=== PATIENT | male | born 1985 | race Caucasian/White ===

== ENCOUNTER 2020-02-01 13:15 | Emergency (ER) | payer BC, SELFPAY ==
[2020-02-01] VITALS (9 sets, daily range): BP systolic 127–148; BP diastolic 73–80; PULSE 70–111; RESP 18–23; TEMP 36.1; O2SAT 94–98
--- NOTE | ~2020-02-01 | XR_ITS ---
EXAMINATION: XR chest 1V portable 02/01/2020 14:30 INDICATION: Shortness of breath PROCEDURE: AP portable chest COMPARISON: 04/04/2018 FINDINGS: The lungs are clear. The cardiomediastinal silhouette is within normal limits. There are no pleural effusions. There is no pneumothorax suspected. IMPRESSION: 1: NO ACUTE CARDIOPULMONARY DISEASE. Reviewed, dictated and finalized at location A. 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
--- NOTE | 2020-02-01 13:47 | ECG_ITS ---
Measurements Intervals [place] Rate: 76 P: 58 [place]: 161 QRS: 89 QRSD: 105 T: 43 QT: 376 QTc: 423 Interpretive Statements SINUS RHYTHM VENTRICULAR PREMATURE COMPLEXES BASELINE ARTIFACT- II, III, AVF BORDERLINE ECG Electronically Signed On 02-02-2020 11:03:33 BICYCLE MESSENGER by Stoney Santiago D.O.
--- NOTE | 2020-02-01 13:50 | ED.URI ---
HPI - URI/Sore Throat General Chief Complaint: Upper Respiratory Infection Stated Complaint: I need a breathing treatment Time Seen by Provider: 02/01/20 13:27 Source: patient Mode of arrival: ambulatory Limitations: no limitations History of Present Illness HPI Narrative: This patient is a 34 year old male with history of asthma who presents for evaluation of shortness of breath. He reports he developed worsen shortness of breath and wheezing last night. He states he just intermittently gets flare up. He has been using his inhaler and nebulizer without relief. He complaints of lung tightness. He denies fever, chills, nausea, vomiting, diarrhea, headache, sore throat. He reports mild dry cough. He denies sick contacts. On my evaluation, patient has oxygen saturation 90% on room air. Related Data Home Medications Medication Instructions Recorded Confirmed albuterol mcg INHALATION 02/01/20 Allergies Allergy/AdvReac Type Severity Reaction Status Date / Time Cephalosporins Allergy Mild Verified 04/04/18 13:31 erythromycin base Allergy Mild Verified 04/04/18 13:31 Penicillins Allergy Mild Verified 04/04/18 13:31 Sulfa (Sulfonamide Allergy Mild Verified 04/04/18 13:31 Antibiotics) Review of Systems Review of Systems: All systems reviewed & are unremarkable except as noted in HPI and below PMFSH Past Medical History Medical History (Updated 02/02/20 @ 00:00 by Reny Cruz) Asthma Social History Social History (Updated 02/01/20 @ 13:58 by Shruthi Harrison MD) Smoking status: Never smoker Gender identity (if verbalized by the patient): Male Exam Const: General: no acute distress and alert Orientation/consciousness: patient oriented x3 Eyes: EOM: EOMs intact bilaterally Resp: Effort & Inspection: normal respiratory effort Auscultation: wheezes expiratory wheezes, inspiratory wheezes and throughout Other: able to talk in full complete sentences. Cardio: Rate: regular rate Rhythm: regular rhythm Heart sounds: no murmurs GI: GI Palp: Yes Soft to palpation, No Tenderness to palpation present (GI) and No Guarding due to palpation present (GI) Auscultation: normal bowel sounds Skin: General skin exam: normal color Rashes: no rashes Neuro: General: patient oriented x3 and moves all extremities Extrem: General: no pedal edema Psych: Mental Status: mental status grossly normal Affect: normal affect Course Reevaluation(s) Reevaluation #1: Patient states he feels better. His oxygen saturation ranges from 90-95% on room air. Patient still has expiratory wheezing. I recommended to patient observation for neb treatments in the hospital and monitoring. He states he does not want to stay. He has a nebulizer at home and he states he needs more of the solution and steroids. I stressed the importance of not waiting if he is short of breath. He needs to return to ER immediately. I discussed seriousness of asthma and risk of if not taken care of . He state he understands and he still wants to go home. Date: 02/01/20 Time: 18:19 Vital Signs Vital signs: Vital Signs Temperature 97.0 F L 02/01/20 13:19 Pulse Rate 94 02/01/20 13:19 Respiratory Rate 22 H 02/01/20 13:19 Blood Pressure 148/80 H 02/01/20 13:19 Pulse Oximetry 98 02/01/20 13:19 Temperature 97.0 F L 02/01/20 13:19 Pulse Rate 86 02/01/20 18:56 Respiratory Rate 23 H 02/01/20 18:56 Blood Pressure 127/73 02/01/20 18:56 Pulse Oximetry 94 02/01/20 18:56 MDM - URI/Sore Throat Lab Data Attestation: I reviewed the patient's lab results. Result diagrams: 02/01/20 14:35 02/01/20 14:35 Labs: Lab Results 02/01/20 02/01/20 02/01/20 Range/Units 14:11 14:35 14:35 WBC 9.9 (4.5-10.0) K/mm3 RBC 5.67 (4.6-6.20) M/mm3 Hgb 17.5 (14.0-18.0) g/dL Hct 51.0 (42.0-52.0) % MCV 89.9 (80-100) fl MCH 30.9 (26-34) pg MCHC 34.3 (32-36) g
[2020-02-01] MEDS: IPRATROPIUM BR 0.02% INH SOLN 0.5 MG/2.5 ML VIAL 1 MG INHALATION (14:12)
[2020-02-01] MEDS: ALBUTEROL SULFATE NEB 2.5 MG/0.5 ML INH 10 MG INHALATION (14:12)
[2020-02-01] MEDS: predniSONE 20 MG TABLET 60 MG PO (14:19)
[2020-02-01 14:28] LABS: Base Excess ABG 0.2 mEq/l (+/-2.0); Carboxyhemoglobin 0.5 % THb (0-2.0); Device ROOM AIR; Fractional Inspired Oxygen 21 %; HCO3 ABG 24.3 mEq/l (22.0-26.0); Methemoglobin ABG 0.3 %THb (0-1.5); Modified Allen's Test Pass; Oxygen Content ABG 21.5 %vol (16.0-22.0); Oxygen Saturation ABG 92.1 % (95.0-100.0); Oxyhemoglobin 91.2 % THb (90.0-100.0); PO2 ABG 61.2 mmHg (80.0-100.0); PO2 FiO2 Ratio Arterial Blood 2.91 %; Site Drawn LEFT RADIAL; Total Hemoglobin 16.8 g/dL (12.0-18.0); pH ABG 7.424 (7.350-7.450)
[2020-02-01 14:43] LABS: Basophils Absolute Auto 0.1 K/mm3 (0.0-0.1); Basophils Percent Auto 0.7 % (0.2-1.2); Eosinophils Absolute Auto 0.8 K/mm3 (0-0.3); Eosinophils Percent Auto 7.9 % (0-4.4); Hemoglobin 17.5 g/dL (14.0-18.0); Immature Granulocyte Absolute 0.02 K/mm3 (0.00-0.031); Immature Granulocyte Percent A 0.2 % (0-0.5); Lymphocytes Percent Auto 28.2 % (18.3-44.2); Mean Corpuscular HGB Conc 34.3 g/dl (32-36); Mean Corpuscular Hemoglobin 30.9 pg (26-34); Mean Corpuscular Volume 89.9 fl (80-100); Mean Platelet Volume 11.1 fl (7.4-10.4); Monocytes Absolute Auto 0.8 K/mm3 (0.1-0.6); Monocytes Percent Auto 8.5 % (2.6-8.5); Neutrophils Absolute Auto 5.4 K/mm3 (1.3-6.7); Neutrophils Percent Auto 54.5 % (45.5-73.1); Platelet Count Result 229 k/mm3 (150-375); Red Blood Count 5.67 M/mm3 (4.6-6.20); Red Cell Distribution Width 12.9 % (11.5-14.5); White Blood Count 9.9 K/mm3 (4.5-10.0)
[2020-02-01 14:54] LABS: INR 1.1; Prothrombin Time 14.3 Seconds (11.1-14.7)
[2020-02-01 14:55] LABS: Alanine Aminotransferase 35 U/L (4-50); Albumin Level 4.8 g/dL (3.5-5.1); Alkaline Phosphatase 83 U/L (38-126); Anion Gap 10 mmol/L (8-16); Aspartate Amino Transferase 35 U/L (17-59); Blood Urea Nitrogen 11 mg/dL (9-20); Calcium 9.5 mg/dL (8.4-10.2); Carbon Dioxide 31 mmol/L (22-30); Chloride 101 mmol/L (98-107); Estimated CRCL calculation 128 ml/min; Estimated Glomerular Filt Rate > 60; Glucose 100 mg/dL (75-110); Potassium 3.7 mmol/L (3.4-5.0); Sodium 142 mmol/L (137-145)
[2020-02-01 14:58] LABS: CRP 0.6 mg/dL (<1.0); D Dimer 0.23 ug/mL (<0.48); Magnesium 1.9 mg/dL (1.6-2.3)
[2020-02-01] MEDS: IPRATROPIUM BR 0.02% INH SOLN 0.5 MG/2.5 ML VIAL INHALATION ×2 (17:43→18:14)
[2020-02-01] MEDS: ALBUTEROL SULFATE NEB 2.5 MG/0.5 ML INH 5 MG INHALATION ×2 (17:43→18:14)
[2020-02-03 19:30] LABS: SARS-CoV-2 RNA PCR Negative
== END 2020-02-01 18:56 | disposition home or self-care (01) ==
PROVIDERS: Emergency Provider General Practice
DX: J45.909 Unspecified asthma, uncomplicated (principal); Z20.828 Contact with and (suspected) exposure to other viral communicable diseases; I49.3 Ventricular premature depolarization
CPT/HCPCS: 36415; 36600; 71045; 80053; 82375; 82805; 83050; 83735; 85025; 85380; 85610; 85730; 86140; 87635; 93005; 94640; 99284; C9803; J7512; U0003

== ENCOUNTER 2020-02-01 16:27 | Emergency (ER) | payer BC, SELFPAY | END 2020-02-01 16:29 | disposition left against medical advice (07) | LOC: ANHED 16:32 | DX: Z53.21 Procedure and treatment not carried out due to patient leaving prior to being seen by health care provider (principal) | CPT/HCPCS: 99199 ==

== ENCOUNTER 2020-05-27 09:45 | Emergency (ER) | payer BC, SELFPAY ==
--- NOTE | ~2020-05-27 | XR_ITS ---
EXAMINATION: XR chest 1V portable DATE: 05/27/2020 11:29 INDICATION: Dyspnea. Asthma. TECHNIQUE: A single frontal view of the chest was obtained. COMPARISON: Chest single view 02/01/2020, chest CT 02/10/2017 FINDINGS: The chest demonstrates clear lungs without pneumonia, pleural effusion, or pneumothorax. Th e heart size is normal. IMPRESSION: 1. No acute cardiopulmonary disease. Reviewed, dictated and finalized at location B.
[2020-05-27 09:53] VITALS: BP 160/94; PULSE 104; RESP 22; TEMP 36.7; O2SAT 95
--- NOTE | 2020-05-27 10:05 | ED.ASTHMA ---
HPI - Asthma General Chief Complaint: Asthma Stated Complaint: diff breathing Time Seen by Provider: 05/27/20 10:05 Source: patient Mode of arrival: ambulatory Limitations: no limitations History of Present Illness HPI Narrative: Patient is a 35-year-old male with a history of asthma who presents for evaluation of shortness of breath. Patient states he has had increasing shortness of breath over the past 4 days. He states yesterday the shortness of breath worsened as well as increased wheezing and he did over 150 puffs on his albuterol inhaler. Patient did not have improvement with this. He states he is not out of albuterol, has no access to medications as he does not currently follow with a primary care provider. He denies any current steroid use. He denies any shon chest pain. No pleuritic pain. He has no fever, loss of sense of taste or smell. No rashes. 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 He states he had a sinus infection a week ago and was treated with an antibiotic but now has had increased shortness of breath since finishing that. Patient states initially this started with a runny nose as well as sore throat, but denies those symptoms currently. No history of Covid. No history of Covid vaccination. Related Data Home Medications Medication Instructions Recorded Confirmed albuterol mcg INHALATION 02/01/20 Allergies Allergy/AdvReac Type Severity Reaction Status Date / Time Cephalosporins Allergy Mild Unknown Verified 05/27/20 09:56 erythromycin base Allergy Mild Unknown Verified 05/27/20 09:56 Penicillins Allergy Mild Unknown Verified 05/27/20 09:56 Sulfa (Sulfonamide Allergy Mild Unknown Verified 05/27/20 09:56 Antibiotics) Review of Systems Review of Systems: Narrative: CONSTITUTIONAL: Denies fever, chills, or sweats. EYES: Denies visual changes, redness, or discharge. ENT: Resolved rhinorrhea and sore throat CARDIOVASCULAR: Denies chest pain, palpitations, or edema. RESPIRATORY: Reports cough and shortness of breath GASTROINTESTINAL: Denies abdominal pain, nausea, vomiting, or diarrhea. GENITOURINARY: Denies dysuria or hematuria. SKIN: Denies rash or itching. MUSCULOSKELETAL: Denies back pain, joint pain, or myalgia. NEUROLOGIC: Denies headache, numbness, or weakness. [facility] Past Medical History Medical History Asthma Social History Social History Smoking status: Never smoker Gender identity (if verbalized by the patient): Male Exam Narrative: Exam Narrative: GENERAL: Awake, alert, conversant HEAD: Normocephalic, atraumatic. EYES: PERRLA and EOMI. ENT: Nares clear, no rhinorrhea or epistaxis. Mucous membranes moist. NECK: Supple. CHEST: Tachypnea, mild respiratory distress, able to speak in short sentences, diffuse expiratory wheezing in all lung akins HEART: Regular rate, sinus rhythm ABDOMEN:Non distended, non tender EXTREMITIES: Normal range of motion. No edema. SKIN: Warm, dry, no rash. NEURO:No focal deficits. Alert and oriented x3 Course Vital Signs Vital signs: Vital Signs Temperature 36.7 C 05/27/20 09:53 Pulse Rate 104 H 05/27/20 09:53 Respiratory Rate 22 H 05/27/20 09:53 Blood Pressure 160/94 H 05/27/20 09:53 Pulse Oximetry 95 05/27/20 09:53 Temperature 36.7 C 05/27/20 09:53 Pulse Rate 76 05/27/20 12:15 Respiratory Rate 20 05/27/20 12:15 Blood Pressure 160/94 H 05/27/20 09:53 Pulse Oximetry 95 05/27/20 09:53 MDM - Asthma MDM Narrative Medical decision making narrative: Patient presented for evaluation of wheezing and shortness of breath. States that is consistent with previous asthma exacerbations. At time of assessment, exam is consistent with mild asthma exacerbation. He has diffuse wheezing in all lung akins. He is mildly tachypneic. Patient was given a DuoNeb treatment and steroids. Yuan
[2020-05-27] MEDS: SODIUM CHLORIDE 0.9% IV 500 ML 999 ML IV CONT (10:35)
[2020-05-27] MEDS: methylPREDNISolone SOD SUCC 125 MG VIAL IV PUSH (10:35)
--- NOTE | 2020-05-27 10:41 | ECG_ITS ---
Measurements Intervals [place] Rate: 71 P: 56 [place]: 162 QRS: 82 QRSD: 100 T: 57 QT: 374 QTc: 407 Interpretive Statements SINUS RHYTHM NORMAL ECG Electronically Signed On 05-27-2020 12:18:57 CDT by Stoney Santiago D.O.
[2020-05-27] MEDS: ALBUTEROL SULFATE NEB 2.5 MG/0.5 ML INH 5 MG INHALATION (10:50)
[2020-05-27] MEDS: IPRATROPIUM BR 0.02% INH SOLN 0.5 MG/2.5 ML VIAL 1 MG INHALATION (10:50)
[2020-05-27 10:51] VITALS: PULSE 74; RESP 20
[2020-05-27 10:53] LABS: Basophils Absolute Auto 0.1 K/mm3 (0.0-0.1); Basophils Percent Auto 0.6 % (0.2-1.2); Eosinophils Absolute Auto 0.7 K/mm3 (0-0.3); Eosinophils Percent Auto 7.3 % (0-4.4); Hematocrit 43.1 % (42.0-52.0); Hemoglobin 14.4 g/dL (14.0-18.0); Immature Granulocyte Absolute 0.02 K/mm3 (0.00-0.031); Immature Granulocyte Percent A 0.2 % (0-0.5); Lymphocytes Absolute Auto 1.74 K/mm3 (0.9-3.2); Lymphocytes Percent Auto 18.2 % (18.3-44.2); Mean Corpuscular HGB Conc 33.4 g/dl (32-36); Mean Corpuscular Hemoglobin 30.2 pg (26-34); Mean Corpuscular Volume 90.4 fl (80-100); Mean Platelet Volume 11.4 fl (7.4-10.4); Monocytes Absolute Auto 1.1 K/mm3 (0.1-0.6); Monocytes Percent Auto 11.1 % (2.6-8.5); Neutrophils Percent Auto 62.6 % (45.5-73.1); Platelet Count Result 193 k/mm3 (150-375); Red Blood Count 4.77 M/mm3 (4.6-6.20); Red Cell Distribution Width 13.5 % (11.5-14.5); White Blood Count 9.6 K/mm3 (4.5-10.0)
[2020-05-27 11:06] LABS: Anion Gap 7 mmol/L (8-16); Blood Urea Nitrogen 13 mg/dL (9-20); Calcium 8.9 mg/dL (8.4-10.2); Carbon Dioxide 29 mmol/L (22-30); Chloride 104 mmol/L (98-107); Estimated CRCL calculation 158 ml/min; Estimated Glomerular Filt Rate > 60; Glucose 96 mg/dL (75-110); Potassium 3.4 mmol/L (3.4-5.0); Sodium 140 mmol/L (137-145)
[2020-05-27 12:15] VITALS: PULSE 76; RESP 20
[2020-05-28 20:31] LABS: SARS-CoV-2 RNA PCR Negative
== END 2020-05-27 12:48 | disposition home or self-care (01) ==
PROVIDERS: Emergency Provider Emergency Medicine
DX: J45.21 Mild intermittent asthma with (acute) exacerbation (principal); Z20.822 Contact with and (suspected) exposure to COVID-19
CPT/HCPCS: 36415; 71045; 80048; 85025; 93005; 94640; 96361; 96374; 99284; C9803; J2930; J7040; U0003; U0005

== ENCOUNTER 2020-10-21 06:34 | Emergency (ER) | payer BC, SELFPAY ==
[2020-10-21] VITALS (26 sets, daily range): BP systolic 104–168; BP diastolic 62–94; PULSE 88–128; RESP 12–29; TEMP 36.9; O2SAT 94–100
--- NOTE | ~2020-10-21 | XR_ITS ---
EXAMINATION: XR chest 2V DATE: 10/21/2020 07:18 INDICATION: Shortness of breath and wheezing TECHNIQUE: PA and lateral views of the chest were obtained. COMPARISON: Chest radiograph dated 05/27/2020 FINDINGS: The lungs remain clear with no focal airspace opacities, pulmonary edema, pleural effusion or pneumot horax. The cardiomediastinal silhouette is normal. Visualized bones and soft tissues are unremarkable . IMPRESSION: 1. Normal chest radiograph. Reviewed, dictated and finalized at location A. IMPRESSION: 1. Normal chest radiograph.
--- NOTE | 2020-10-21 06:44 | ECG_ITS ---
Measurements Intervals [place] Rate: 111 P: 78 [place]: 140 QRS: 93 QRSD: 96 T: -9 QT: 313 QTc: 426 Interpretive Statements SINUS TACHYCARDIA POSSIBLE RIGHT ATRIAL ENLARGEMENT LEFT ATRIAL ENLARGEMENT RIGHT AXIS DEVIATION BORDERLINE R WAVE PROGRESSION, ANTERIOR LEADS BORDERLINE ST-T WAVE ABNORMALITY- INFERIOR LEADS BASELINE ARTIFACT- II, III, AVR, AVF, V1-V2 ABNORMAL ECG Electronically Signed On 10-21-2020 7:50:33 CDT by Stoney Santiago D.O.
--- NOTE | 2020-10-21 06:53 | PC.NURSE ---
RT here to give patient breathing treatment.
[2020-10-21] MEDS: IPRATROPIUM BR 0.02% INH SOLN 0.5 MG/2.5 ML VIAL INHALATION (06:55)
[2020-10-21] MEDS: ALBUTEROL SULFATE NEB 2.5 MG/0.5 ML INH 5 MG INHALATION (06:55)
[2020-10-21 07:05] LABS: Basophils Absolute Auto 0.1 K/mm3 (0.0-0.1); Basophils Percent Auto 0.3 % (0.2-1.2); Eosinophils Absolute Auto 0.6 K/mm3 (0-0.3); Eosinophils Percent Auto 3.1 % (0-4.4); Hematocrit 48.2 % (42.0-52.0); Hemoglobin 15.9 g/dL (14.0-18.0); Immature Granulocyte Absolute 0.05 K/mm3 (0.00-0.031); Immature Granulocyte Percent A 0.3 % (0-0.5); Lymphocytes Absolute Auto 1.99 K/mm3 (0.9-3.2); Lymphocytes Percent Auto 11.2 % (18.3-44.2); Mean Corpuscular Hemoglobin 30.3 pg (26-34); Mean Corpuscular Volume 91.8 fl (80-100); Mean Platelet Volume 11.6 fl (7.4-10.4); Monocytes Absolute Auto 1.4 K/mm3 (0.1-0.6); Monocytes Percent Auto 7.8 % (2.6-8.5); Neutrophils Absolute Auto 13.8 K/mm3 (1.3-6.7); Neutrophils Percent Auto 77.3 % (45.5-73.1); Platelet Count Result 203 k/mm3 (150-375); Red Blood Count 5.25 M/mm3 (4.6-6.20); Red Cell Distribution Width 13.2 % (11.5-14.5); White Blood Count 17.8 K/mm3 (4.5-10.0)
--- NOTE | 2020-10-21 07:13 | PC.NURSE ---
Pt going to xray.
[2020-10-21 07:40] LABS: Anion Gap 11 mmol/L (8-16); Blood Urea Nitrogen 11 mg/dL (9-20); Calcium 9.2 mg/dL (8.4-10.2); Carbon Dioxide 25 mmol/L (22-30); Chloride 104 mmol/L (98-107); Estimated Glomerular Filt Rate > 60; Glucose 132 mg/dL (65-110); Potassium 3.8 mmol/L (3.4-5.0); Sodium 140 mmol/L (137-145)
[2020-10-21] MEDS: ALBUTEROL SULFATE NEB 2.5 MG/0.5 ML INH 15 MG INHALATION (08:01)
[2020-10-21] MEDS: IPRATROPIUM BR 0.02% INH SOLN 0.5 MG/2.5 ML VIAL 1 MG INHALATION (08:01)
--- NOTE | 2020-10-21 08:04 | ED.SOB ---
HPI - SOB/Dyspnea General Chief Complaint: Shortness of Breath/Dyspnea Stated Complaint: asthma Time Seen by Provider: 10/21/20 06:57 History of Present Illness HPI Narrative: Patient is a 35-year-old male who presents to the ER with shortness of breath. Reports yesterday he began having thick sinus drainage that is green and yellow that causes him to have a productive cough. He has history of asthma and it is causing him to flareup. He typically uses his Symbicort twice a day without any issues. His albuterol inhaler was not helping him and then ran out. No fevers or chills or sweats. No known Covid exposures. No loss of taste or smell. He is unvaccinated. Related Data Home Medications Medication Instructions Recorded Confirmed albuterol mcg INHALATION 02/01/20 budesonide-formoterol [Symbicort] INHALATION 10/21/20 Allergies Allergy/AdvReac Type Severity Reaction Status Date / Time Cephalosporins Allergy Mild Unknown Verified 10/21/20 06:47 erythromycin base Allergy Mild Unknown Verified 10/21/20 06:47 Penicillins Allergy Mild Unknown Verified 10/21/20 06:47 Sulfa (Sulfonamide Allergy Mild Unknown Verified 10/21/20 06:47 Antibiotics) Review of Systems Review of Systems: All systems reviewed & are unremarkable except as noted in HPI and below Constitutional: Constitutional: Denies chills, Denies fever(s) and Denies weakness ENT: Reports nasal congestion and Reports sore throat Cardiovascular: Cardiovascular: Denies chest pain, Denies rapid heart rate and Denies radiating jaw, neck or arm pain Respiratory: Respiratory: Reports chest congestion, Reports cough, Reports dyspnea and Reports wheezing Gastrointestinal: Gastrointestinal: Denies abdominal pain, Denies nausea and Denies vomiting PMFSH Past Medical History Medical History (Updated 10/21/20 @ 10:28 by Jhon Duarte MD) Anxiety Asthma Depression Kidney stones Surgical History Surgical History (Updated 10/21/20 @ 08:08 by Jhon Duarte MD) Hx of tonsillectomy Social History Social History Smoking status: Never smoker Gender identity (if verbalized by the patient): Male Exam Narrative: GENERAL: Well-appearing, well-nourished, and in no acute distress. HEAD: Normocephalic, atraumatic. CHEST: Diffuse inspiratory and expiratory wheezing. Mild respiratory distress. HEART: Regular rate and rhythm. Normal peripheral pulses. ABDOMEN: Soft, nontender, nondistended. EXTREMITIES: Normal range of motion. No edema. SKIN: Warm, dry, no rash. NEURO: Alert and oriented x3. PSYCH: Normal mood and affect. Course Course Emergency Course: Patient feels improved after nebulizer treatments. Scant wheezing noted after neb treatment. Will start on prednisone. Original leukocytosis may be reactive due to patient's distress to earlier on. Patient requires Covid swab back to work so we will perform a PCR. Patient will receive first dose of steroids. He needs a albuterol inhaler. Vital Signs Vital signs: Vital Signs Temperature 98.4 F 10/21/20 06:39 Pulse Rate 111 H 10/21/20 06:39 Respiratory Rate 23 H 10/21/20 06:39 Blood Pressure 168/94 H 10/21/20 06:39 Pulse Oximetry 97 10/21/20 06:39 Temperature 98.4 F 10/21/20 06:39 Pulse Rate 97 10/21/20 10:21 Respiratory Rate 18 10/21/20 10:21 Blood Pressure 137/62 10/21/20 10:21 Pulse Oximetry 96 10/21/20 10:21 MDM - SOB/Dyspnea Lab Data Result diagrams: 10/21/20 06:47 10/21/20 07:21 Labs: Lab Results 10/21/20 10/21/20 Range/Units 06:47 07:21 WBC 17.8 H (4.5-10.0) K/mm3 RBC 5.25 (4.6-6.20) M/mm3 Hgb 15.9 (14.0-18.0) g/dL Hct 48.2 (42.0-52.0) % MCV 91.8 (80-100) fl MCH 30.3 (26-34) pg MCHC 33.0 (32-36) g/dl RDW 13.2 (11.5-14.5) % Plt Count 203 (150-375) k/mm3 MPV 11.6 H (7.4-10.4) fl Immature Gran % (Auto) 0.3 (0
[2020-10-21] MEDS: predniSONE 20 MG TABLET 60 MG PO (10:21)
[2020-10-21 18:40] LABS: SARS-CoV-2 RNA PCR Negative
== END 2020-10-21 10:46 | disposition home or self-care (01) ==
PROVIDERS: Emergency Medicine; Emergency Provider Emergency Medicine; PCP Nurse Practitioner Family
DX: J45.901 Unspecified asthma with (acute) exacerbation (principal); Z20.822 Contact with and (suspected) exposure to COVID-19; Z87.442 Personal history of urinary calculi; R00.0 Tachycardia, unspecified; R94.31 Abnormal electrocardiogram [ECG] [EKG]
CPT/HCPCS: 36415; 71046; 80048; 85025; 93005; 94640; 99284; C9803; J7512; U0003; U0005

== ENCOUNTER 2021-01-27 17:02 | Outpatient (CLI) | payer BC, SELFPAY ==
--- NOTE | ~2021-01-27 | XR_ITS ---
EXAMINATION: XR lumbar spine 2-3V DATE: 01/27/2021 17:34 INDICATION: Acute onset low back pain TECHNIQUE: Anteroposterior and lateral views of the lumbar spine, and cone-down lateral view of the l umbosacral junction were obtained. COMPARISON: None. FINDINGS: Alignment is normal. Vertebral body heights are normal. Mild disc height loss with mild degenerative endplate changes at T12-L1 and L1-L2. Sacrum and bilateral sacral iliac joints are normal. Small calc ific densities measuring 4 mm project over the mid right kidney and 2-3 mm projecting over the lower pole of the left kidney. IMPRESSION: 1. Mild upper lumbar spondylosis. 2. Bilateral nephrolithiasis. Reviewed, dictated and finalized at location . 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
--- NOTE | ~2021-01-27 | XR_ITS ---
EXAMINATION:XR cervical spine 4-5V DATE: 01/27/2021 17:34 INDICATION: Neck pain TECHNIQUE: AP, lateral, lateral swimmers and odontoid views of the cervical spine are provided. COMPARISON: None FINDINGS: Straightening of the normal cervical lordosis. No spondylolisthesis or facet subluxation. Odontoid is intact. Normal atlantoaxial interval. Vertebral body heights are normal. Disc spaces are normal. Mi ld facet osteoarthritis at C7-T1. Prevertebral soft tissues are normal. Visualized apices of lungs ar e clear. IMPRESSION: 1. Straightening of the normal cervical lordosis which could be positional or due to muscle spasm. 2. Mild facet osteoarthritis at C7-T1. Reviewed, dictated and finalized at location H. 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 Straightening of the normal cervical lordosis which could be positional or d ue to muscle spasm. 2. Mild facet osteoarthritis at C7-T1.
== END 2021-01-27 17:03 | disposition home or self-care (01) ==
LOC: ANHIMG 17:10
PROVIDERS: PCP Nurse Practitioner Family; Visit Provider Family Medicine
DX: M47.896 Other spondylosis, lumbar region (principal); N20.0 Calculus of kidney; M51.34 Other intervertebral disc degeneration, thoracic region; M50.30 Other cervical disc degeneration, unspecified cervical region; M47.892 Other spondylosis, cervical region
CPT/HCPCS: 72050; 72100

== ENCOUNTER 2024-03-24 23:25 | Emergency (ER) | payer BC, SELFPAY ==
--- NOTE | ~2024-03-24 | XR_ITS ---
CHEST RADIOGRAPH CLINICAL HISTORY: cough . COMPARISON: 10/21/2020 TECHNIQUE: Single portable view of the chest. FINDINGS The cardiomediastinal silhouette is unremarkable. The lungs are clear. Visualized osseous structures and soft tissues are unremarkable. IMPRESSION: No focal infiltrate or effusion. Reviewed, dictated and finalized at location A. RACY COORDINATOR
--- OUTSIDE RECORDS SUMMARY | 2024-03-24 23:27 | XMS_ITS | Patient Health Summary ---
Author Organization [facility] Address [address] [place] [address] Care Team Providers Care Gem Setter Name Role Phone Unavailable Primary Care Provider Unavailabl e Note from [facility],non-owned Affiliates and Associated Physician Practices is amultiple site organization consisting of ambulatory clinics and hospital sitesin [place], [place], [place]. This disclosure is being madepursuant to the Care Everywhere program and may not contain all information available regarding this patient. Last updated 17.[facility] Allergies * Cephalosporins(Urticaria) -Medium Criticality * Erythromycin(Urticaria) -Medium Criticality * Penicillins(Urticaria) -Medium Criticality * Sulfa Drugs(Urticaria) -Medium Criticality Medications * Be aware that medications may not be up to date on this document. Alwaysverify current medications with the patient. * Albuterol Sulfate (PROAIR HFA IN) * albuterol HFA (PROVENTIL;VENTOLIN;PROAIR) 108 (90 Base) MCG/ACT inhaler (Started 06/20/2018) Inhale 2 puffs by mouth every 6 hours as needed Social History Tobacco Use Types Packs/Day Years Used Date Smoking Tobacco: Former Smokeless Tobacco: Never Sex and Gender Information Value Date Recorded Sex Assigned at Not on file Gender Identity Not on file Sexual Orientation Not on file Last Filed Vital Signs Vital Sign Reading Time Taken Comments Blood Pressure 128/78 06/20/2018 6:14 PM CDT Pulse 80 06/20/2018 6:14 PM CDT Temperature 36.9 C (98.4 F) 06/20/2018 6:14 PM CDT Respiratory Rate 16 06/20/2018 6:14 PM CDT Oxygen Saturation 98% 06/20/2018 6:14 PM CDT Inhaled Oxygen Concentration - - Weight 104.3 kg (230 lb) 06/20/2018 6:14 PM CDT Height 180.3 cm (5' 11 ) 06/20/2018 6:14 PM CDT Body Mass Index 32.08 06/20/2018 6:14 PM CDT Procedures * PULSE OXIMETRY - POINT OF CARE (AMB)(Performed 06/20/2018) Performed for Asthma, unspecified asthma severity, unspecified whether complicated, unspecified whether persistent (HCC) Results * PULSE OXIMETRY - POINT OF CARE (AMB) (06/20/2018 6:26 PM CDT) Oximetry POCT 98 0 - 100 % QC Verified Yes Yes Blood BLOOD SPECIMEN / Unknown 06/20/2018 6:26 PM CDT Eren Muir 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
--- OUTSIDE RECORDS SUMMARY | 2024-03-24 23:27 | XMS_ITS | Data Portability ---
Author Organization [facility] Speed Dating by Chantilly Lace, Main Office Address [address] [place] [address] Care Team Providers Care Tire Setter Name Role Phone BIMAL TATE Head Of Biology Assessment Encounter Date Assessment Date Assessment LastModified by Organization Details LastModified Time 10/07/2022 10/07/2022 D/w pt about his findings and further plan of care. Meds as directed. OTC Zyrtec/Clarit in/Anna Marie po qhs prn. Very good liquid intake explained. OTC Pain meds as directed prn with food. Routine ear care explained in detail. Educated about alarming symptoms to monitor at home. F/u as directed. Not available 10/07/2022 14:09:30 Plan of Treatment Reminders Order Date Submit Date Provider Last Modified By Organization Details Last Modified Time Details Appointments Follow Up 15 2024 09:15A BUTCH Martinez Not available Not available Not available Lab vitamin D3, 25-hydrox y, serum [address] (Lab), [address] [place], [address], 03/15/2024 15:00:40 vitamin B12 + folate, serum or blood [address] (Lab), [address] [place], [address], 03/15/2024 15:00:40 magnesium , serum or plasma [address] (Lab), [address] [place], [address], 03/15/2024 15:00:40 testoster one, free + total, serum [address] [place] [address] (Lab), [address] [place], [address], 03/15/2024 15:00:40 CMP, serum or plasma [address] [place] [address] (Lab), [address] [place], [address], 03/15/2024 15:00:38 CBC w/ auto diff [address] [place] [address] (Lab), [address] [place], [address], 03/15/2024 15:00:39 lipid panel, serum [address] [place] [address] (Lab), [address] [place], [address], 03/15/2024 15:00:39 glycohemo globin, total, blood [address] [place] [address] (Lab), [address] [place], [address], 03/15/2024 15:00:39 T4, free, serum [address] [place] [address] (Lab), [address] [place], [address], 03/15/2024 15:00:39 CK (creatine kinase), total, serum [address] [place] [address] (Lab), [address] [place], [address], 03/15/2024 15:00:39 TSH, serum or plasma 2024 025 [email or web address] [facility] (Lab), [address] [place], [address], 03/15/2024 15:00:40 lipid panel, serum [address] (Lab), [address] [place], [address], 11/05/2022 08:13:19 TSH, serum or plasma [address] (Lab), [address] [place], [address], 11/05/2022 08:13:19 CMP, serum or plasma [address] (Lab), [address] [place], [address], 11/05/2022 08:13:19 glycohemo globin, total, blood [address] (Lab), [address] [place], [address], 11/05/2022 08:13:19 CBC w/ auto diff [address] (Lab), [address] [place], [address], 11/05/2022 08:13:18 vitamin B12 + folate, serum or blood [address] (Lab), [address] [place], [address], 11/05/2022 08:13:19 Referral physical therapist referral - *Please call pt to schedule* 2022 023 [facility], [address], [place], [address], 11/08/2022 19:57:35 Procedures None recorded. Surgeries None recorded. Imaging None recorded. Medication Orders ciproflox acin 500 mg tablet 2024 025 [facility]30730, [address], [place], [place], [id number], 03/07/2024 11:55:18 naproxen 500 mg tablet 2024 025 [facility] #65188, [address], [place], [place], [id number], 03/07/2024 11:55:16 budesonid e-formote rol HFA 160 mcg-4.5 mcg/actua tion aerosol inhaler 2024 025 [facility] #89241, [address] [facility], [place], [place], [id number], 03/07/2024 11:51:07 albuterol sulfate HFA 90 mcg/actua tion aerosol inhaler 2024 025 [facility] #34422, [address] [facility], [place], [place], [id number], 03/07/2024 11:51:08 promethaz ine-DM 6.25 mg-15 mg/5 mL oral syrup 2024 025 [facility] #21428, [address] [facility], [place], [place], [id number], 03/07/2024 11:55:21 albuterol sulfate HFA 90 mcg/actua tion aerosol inhaler 2022 023 [facility] #68972, [address] [facility], [place], [place], [id number], 10/07/2022 14:11:47 neomycin- polymyxin -hydrocor t 3.5 mg-10,000 unit/mL-1 % ear drops,milton p 2022 023 [email or web address] #51090, [address] [place], [place], [id number], 10/29/2022 15:38:11 Patient TargetsNo targets recorded. Patient Instructions Encounter Date Encounter Id Patient Instructions Last Modified By Organization Details Last Modified Time 10/29/2022 [id number] Fu in 6 mo for asthma. [email or web address] Not available 10/29/2022 15:58:58 Reason for Referral Physical Therapist Referral for Lumbago with sciatica *Please call pt to schedule* Referring Physician: Ebonie Huerta, [facility], Encounter Date: 10/29/2022 Problems Name Problem SNOMED Code Status Onset Date Resolution Date Notes Provider Name and Address Organization Details Recorded Time Asthma 774793867 Active 2020 Not Available [facility] 3 23:30:27 Tinea pedis 7679645 Active 2021 Not Available [facility] 3 23:30:27 Otalgia of right ear 8419107132 Active 2022 Modesto Hampton MD [address], [place], [address] , [facility] 3 14:09:48 Obesity 596554329 Active 2022 Modesto Hampton MD [address], [place], [address] , [facility] 3 14:13:49 Lumbago with sciatica 313256253 Active 2022 Ebonie Huerta NP [address], [place], [address] , [facility] 3 15:53:16 Acute right otitis media 454904507 Active 2024 BUTCH Cordero [address], [place], [address] , [facility] 5 11:53:13 Adult health examination Active 2024 BUTCH Cordero [address], [facility] [address], [place], [address] , [facility] [employer] [facility] 5 11:55:44 At increased risk for nutritional problem 912966038 Active 2024 BUTCH Cordero [address], [place], [address] , [facility] [employer] [facility] 5 11:58:32 Problem Notes None recorded. Medical Equipment None Reported. Allergies Allergen ID Allergen Name Allergen Category Reaction Reaction Severity Criticality Documentation Date Start Date Code Code System Note Provider Name and Address Organization Details Recorded Time 17777 Substance with sulfonami de structure and antibacte rial mechanism of action (substanc e) medicatio n hives Not available Not available 04/08/2022 81710 8003 SNOMED Not Available [facility] 3 23:32:15 87801 Product containin g penicilli n and antibioti c (product) medicatio n hives Not available Not available 04/08/2022 86887 05 SNOMED Not Available [facility] 3 23:32:15 03120 erythromy tereso medicatio n hives Not available Not available 04/08/2022 4053 RxNorm Not Available [facility] 3 23:32:15 Medications Name Sig Start Date Stop Date Status Note LastModified by Organization Details LastModified Time cyclobenzap rine 10 mg tablet TAKE 1 TABLET BY MOUTH THREE TIMES DAILY FOR 10 DAYS active Not Available Not Available No t Available promethazin e-DM 6.25 mg-15 mg/5 mL oral syrup TAKE 5 ML BY MOUTH EVERY 4 HOURS NEEDED FOR 10 DAYS active Not Available Not Available No t Available doxycycline hyclate 100 mg capsule Take 1 capsule twice a day by oral route. 10/29 completed Not Available Not Available Not Available albuterol sulfate 2.5 mg/3 mL (0.083 %) solution for nebulizatio n USE 2 VIALS IN NEBULIZER EVERY 6 HOURS NEEDED 10/29 completed Not Available Not Available Not Available Medrol (Kyle) 4 mg tablets in a dose pack take po as directed on label. 10/29 completed Not Available Not Available Not Available prednisone 20 mg tablet TAKE 3 TABLETS BY MOUTH DAILY 09/18 completed Not Available Not Available Not Available ciprofloxac in 500 mg tablet TAKE 1 TABLET BY MOUTH EVERY 12 HOURS FOR 10 DAYS active Not Available Not Available No t Available acetaminoph en 500 mg tablet TAKE 1 CAPSULE BY MOUTH EVERY 6 HOURS NEEDED 09/18 completed Not Available Not Available Not Available Kenalog 40 mg/mL suspension for injection Take 1 mL every day by injection route. 10/29 completed Not Available Not Available Not Available prednisone 50 mg tablet TAKE 1 TABLET BY MOUTH DAILY 04/09 completed Not Available Not Available Not Available diclofenac sodium 75 mg tablet,garett yed release Take 1 tablet every 12 hours by oral route as needed for 15 days. active Take with food, as neede d. Not Available Not Available Not Available albuterol sulfate HFA 90 mcg/actuati on aerosol inhaler INHALE 2 PUFFS BY MOUTH EVERY 4 TO 6 HOURS NEEDED active Not Available Not Available No t Available ketorolac 60 mg/2 mL intramuscul ar solution Inject 60 mg as needed by intramusc ular route for 1 day. 04/09 completed Not Available Not Available Not Available fluticasone propionate 50 mcg/actuati on nasal spray,suspe nsion USE 1 SPRAY IN EACH NOSTRIL EVERY 12 HOURS 10/29 completed Not Available Not Available Not Available naproxen 500 mg tablet Take 1 tablet twice a day by oral route in the morning for 30 days. 2024 active Not Available Not Available Not Avai lable neomycin-po lymyxin-hyd rocort 3.5 mg-10,000 unit/mL-1 % ear drops,susp SHAKE LIQUID AND INSTILL 3 DROPS TO AFFECTED EAR THREE TIMES DAILY 10/29 completed Not Available Not Available Not Available albuterol sulfate concentrate 2.5 mg/0.5 mL solution for nebulizatio n INHALE 2 VIALS (5MG) VIA NEBULIZER EVERY 6 HOURS NEEDED 10/29 completed Not Available Not Available Not Available budesonide- formoterol HFA 160 mcg-4.5 mcg/actuati on aerosol inhaler INHALE 2 PUFFS BY MOUTH TWICE DAILY 2024 active Not Available Not Available Not Avai lable Vitals Date Recorded Body mass index (BMI) Body mass index (BMI) Body height Body height Oxygen saturation Oxygen saturation in Arterial blood by Pulse oximetry Oxygen saturation Oxygen saturation in Arterial blood by Pulse oximetry Heart rate Heart rate Body temperature Body temperature Body weight Body weight Systolic blood pressure Diastolic blood pressure Systolic blood pressure Diastolic blood pressure Provider Name and Address Organization Details Last Updated DateTime 3 32.1 kg/m2 30.8 kg/m2 180.34 cm 180.34 cm 95 % 95 % 98 % 98 % 60 /min 68 /min 98.7 [degF] 97.8 [degF] 430396. 25 g 006211. 91 g 122 mm[Hg] 82 mm[Hg] 132 mm[Hg] 86 mm[Hg] Not Available [facility] 3 23:29:54 Date Recorded Body height Body mass index (BMI) Body weight Body temperature Heart rate Oxygen saturation Oxygen saturation in Arterial blood by Pulse oximetry Systolic blood pressure Diastolic blood pressure Provider Name and Address Organization Details Last Updated DateTime 3 180.34 cm 31.8 kg/m2 795884. 46 g 98.5 [degF] 86 /min 98 % 98 % 134 mm[Hg] 70 mm[Hg] Angy Delgado MA [employer] 3 14:05:11 Date Recorded Body height Body mass index (BMI) Body weight Body temperature Heart rate Respiratory rate Oxygen saturation Oxygen saturation in Arterial blood by Pulse oximetry Pain severity - 0-10 verbal numeric rating [Score] - Reported Systolic blood pressure Diastolic blood pressure Provider Name and Address Organization Details Last Updated DateTime 3 180.34 cm 31.4 kg/m2 761052. 38 g 95.3 [degF] 68 /min 16 /min 97 % 97 % 0 134 mm[Hg] 78 mm[Hg] Ebonie Panchal RN [employer] 3 15:40:27 Date Recorded Body height Body mass index (BMI) Body weight Body temperature Heart rate Oxygen saturation Oxygen saturation in Arterial blood by Pulse oximetry Systolic blood pressure Diastolic blood pressure Provider Name and Address Organization Details Last Updated DateTime 5 180.34 cm 35.1 kg/m2 021008. 28 g 98.1 [degF] 97 /min 98 % 98 % 120 mm[Hg] 80 mm[Hg] Harper Crowley CMA [place] [facility] 5 11:41:35 Social History Question Answer Notes LastModified by Organizat ion Details LastModified Time Tobacco Smoking Status Never Smoker Not Available [facility] 04/08/2022 23:29:00 Do You Have An Advance Directive? No [id number].[id number] Information not available 04/08/2022 What Is Your Level Of Alcohol Consumption? Occasional MIGRATION.300206 4083 Information not available 04/08/2022 Do You Wear A Helmet When Biking? No MIGRATION.311780 7166 Information not available 04/08/2022 Is Blood Transfusion Acceptable In An Emergency? Yes Information not available 10/29/2022 What Is Your Level Of Caffeine Consumption? Occasional MIGRATION.[id number] 8364 Information not available 04/08/2022 What Is Your Code Status? Full Code Information not available 10/29/2022 In The 14 Days Before Symptom Onset, Have You Had Close Contact With A Laboratory-confir med COVID-19 While That Case Was Ill? No MIGRATION.977114 7690 Information not available 04/08/2022 In The 14 Days Before Symptom Onset, Have You Had Close Contact With A Person Who Is Under Investigation For COVID-19 While That Person Was Ill? No MIGRATION.753564 1810 Information not available 04/08/2022 What Type Of Diet Are You Following? REGULAR MIGRATION.563566 5429 Information not available 04/08/2022 What Is The Highest Grade Or Level Of School You Have Completed Or The Highest Degree You Have Received? 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 No MIGRATION.168900 8002 Information not available 04/08/2022 What Is The Fluoride Status Of Your Home? Unknown MIGRATION.547020 3382 Information not available 04/08/2022 Do You Use Insect Repellent Routinely? Yes MIGRATION.300629 9142 Information not available 04/08/2022 Where Do You Live? [place] MIGRATION.608936 7563 Information not available 04/08/2022 Do You Have A Medical Power Of Certified Alcohol Counselor? No MIGRATION.786227 6887 Information not available 04/08/2022 Do You Have Any Pets? Yes MIGRATION.938542 9951 Information not available 04/08/2022 What Is Your Relationship Status? MIGRATION.746896 2713 Information not available 04/08/2022 Do You Use Your Seat Belt Or Car Seat Routinely? Yes MIGRATION.722715 4999 Information not available 04/08/2022 Do You Have Smoke And Carbon Monoxide Detectors In Your Home? Yes MIGRATION.456690 9667 Information not available 04/08/2022 Are You Passively Exposed To Smoke? No MIGRATION.543677 8766 Information not available 04/08/2022 Are There Any Smokers In Your House? No MIGRATION.966321 8866 Information not available 04/08/2022 Do You Participate In Social [employer]? Yes MIGRATION.798416 3871 Information not available 04/08/2022 What Types Of Sporting Activities Do You Participate In? None MIGRATION.989698 1746 Information not available 04/08/2022 Do You Feel Stressed (tense, Restless, Nervous, Or Anxious, Or Unable To Sleep At Night)? [id number] MIGRATION.819129 9111 Information not available 04/08/2022 Do You Use Any Illicit Or Recreational Drugs? No MIGRATION.362581 0435 Information not available 04/08/2022 Do You Use Sunscreen Routinely? Yes MIGRATION.985521 5479 Information not available 04/08/2022 Have You Recently Traveled Abroad? No MIGRATION.450938 0801 Information not available 04/08/2022 Are You Currently In School? No MIGRATION.048373 1569 Information not available 04/08/2022 Do You Have Any Dietary Restrictions? No MIGRATION.500888 1610 Information not available 04/08/2022 Do You Or Have You Ever Used Any Other Forms Of Tobacco Or Nicotine? No MIGRATION.949243 4229 Information not available 04/08/2022 Sex: Male Functional Status Question Answer Note LastModified by Organizat ion Details LastModified Time What is your exercise level? Occasional MIGRATION.[id number] 26 Information not available 04/08/2022 Mental Status None recorded. Family History Relationship Description Onset Age of this Age Resolved Age Notes LastModified by Organization Details LastModified Time Father No current problems or disability MIGRATION.762 [id number] Not available 04/08/2022 23:29:24 Mother No current problems or disability MIGRATION.009 [id number] Not available 04/08/2022 23:29:24 Medical History Condition Response ASTHMA Y Past Encounters Encounter ID Performer Location Encounter Start Date Encounter Closed Date Diagnosis/Indication Diagnosis SNOMED-CT Code Diagnosis ICD10 Code Diagnosis Note [id number] [address] [address] 09/18/2020 00:00:00 09/18/2020 13:24:[id number] [address] 10/18/2020 00:00:00 10/18/2020 17:53:[id number] [address] 01/27/2021 00:00:00 01/27/2021 16:39:[id number] [address] 04/09/2021 00:00:00 04/09/2021 11:20:[id number] [address] 07/18/2021 00:00:00 07/18/2021 11:00:43 [id number] Modesto Hampton MD [address] [address] 10/07/2022 13:54:36 10/07/2022 14:15:42 Asthma 566121252 J45.909 Otalgia of right ear 348 1725376 H92.01 Obesity 805312293 E66.9 [id number] Ebonie Huerta NP [address] [address] 10/29/2022 15:33:12 10/29/2022 16:03:36 Adult health examination 482547978 Z00.00 Encouraged well balanced meals active lifestyle, and routine vision and dental. Anemia screening 3960069 07 Z13.0 Diabetes m ellitus screening 671346946 Z13.1 Hyperlipid emia screening 334378151 Z13.220 Thyroid di sorder screening 117554509 Z13.29 Lumbago with sciatica 20 6821147 M54.42 PT referral made. [id number] BUTCH Cordero [facility] [address] [place] [address] [address] 03/07/2024 11:35:12 03/07/2024 12:23:43 Asthma 821478912 J45.909 Acute righ t otitis media 527833034 H66.91 Adult heal th examination 751198548 Z00.00 Obesity 636131674 E[facility].9 [facility] 242598022 Z91.89 Health Concerns Section Related Observation LastModified by Organization Detai ls LastModified Time None Recorded Concern Status LastModified by Organization Details LastModified Time None Recorded Advance Directives Directive N: Payers Encounter Date Sequence Insurance Name Policy Number Policy Antonio Covered Member ID Antonio Member ID Guarantor Name 10/07/2022 1 [place] [id number] Prince Blackmon [id number] Prince Blackmon 10/29/2022 1 [place] [id number] Prince Blackmon [id number] Prince Blackmon 03/07/2024 1 [place] [id number] Prince Blackmon [id number] Prince Blackmno Notes Date Note Type Note Provider Name and Address Organization Details Recorded Time 10/07/2022 text/html ACV: C/o Rt ear pain and fullness for last 3-4 days. Denies any other symptoms. Denies any known sick contact. Needs refill on his Albuterol MDI. Modesto Hampton MD [address] [address], [place], [address], [facility] 10/07/2022 14:14:35 10/29/2022 text/html Here for wellness visit. No concerns. Has no ear pain from 2 weeks ago. Ebonie Huerta NP [address] [address], [place], [address], [facility] [employer] [facility] [email or web address] [facility] 10/29/2022 15:59:41 03/07/2024 text/html was sick came back drainage , cough , no fever BUTCH Cordero [address], [place], [address], [facility] [employer] [facility] [employer] [facility] 03/10/2024 19:54:14
--- OUTSIDE RECORDS SUMMARY | 2024-03-24 23:28 | XMS_ITS | Referral Summary ---
Author Organization [facility] Address [address] [place] [address] Care Team Providers Care Monitoring Tech Name Role Phone Unavailable Primary Care Provider Unavailabl e Source Comments [facility],non-owned Affiliates and Associated Physician Practices is amultiple site organization consisting of ambulatory clinics and hospital sitesin [place], [place], [place] and [place]. This disclosure is being madepursuant to the Care Everywhere program and may not contain all information available regarding this patient. Last updated 17.[facility] Allergies Active Allergy Reactions Criticality Noted Date Comments Cephalosporins Urticaria Medium 06/20/2018 Erythromycin Urticaria Medium 06/20/2018 Penicillins Urticaria Medium 06/20/2018 Sulfa Drugs Urticaria Medium 06/20/2018 Medications * Be aware that medications may not be up to date on this document. Alwaysverify current medications with the patient. Medication Sig Dispensed Refills Start Date End Date Status Albuterol Sulfate (PROAIR HFA IN) Active albuterol HFA (PROVENTIL;VENTOLIN;MS OAIR) 108 (90 Base) MCG/ACT inhalerIndications:Ast hma, unspecified asthma severity, unspecified whether complicated, unspecified whether persistent (HCC) Inhale 2 puffs by mouth every 6 hours as needed 1 Inhaler 06/20/2018 Active Social History Tobacco Use Types Packs/Day Years [...] Mass Index 32.08 06/20/2018 6:14 PM CDT Plan of Treatment Not on file
--- OUTSIDE RECORDS SUMMARY | 2024-03-24 23:28 | XMS_ITS | Clinical Summary ---
Author Organization [facility] [employer] Address [address] [facility] [place] [address] Care Team Providers Care Instructor Creeler Name Role Phone Unavailable Primary Care Provider Unavailabl e Source Comments [facility] [employer],non-owned Affiliates and Associated Physician Practices is amultiple site organization consisting of ambulatory clinics and hospital sitesin [place], [place], [place] and [place]. This disclosure is being madepursuant to the Care Everywhere program and may not contain all information available regarding this patient. Last updated 17.[facility] [employer] Allergies Active Allergy Reactions Criticality Noted Date Comments Cephalosporins Urticaria Medium 06/20/2018 Erythromycin Urticaria Medium 06/20/2018 Penicillins Urticaria Medium 06/20/2018 Sulfa Drugs Urticaria Medium 06/20/2018 Medications * Be aware that medications may not be up to date on this document. Alwaysverify current medications with the patient. Medication Sig Dispensed Refills Start Date End Date Status Albuterol Sulfate (PROAIR HFA IN) Active albuterol HFA (PROVENTIL;VENTOLIN;VT OAIR) 108 (90 Base) MCG/ACT inhalerIndications:Ast hma, [...] 06/20/2018 6:14 PM CDT Plan of Treatment Health Maintenance Due Date Last Done Comments HIV SCREENING 2001 HEPATITIS C SCREENING 03/08/2004 DTAP/TDAP/TD VACCINES (1 - Tdap) 2005 HEPATITIS B VACCINE (1 of 3 - 19+ 3-dose series) 2005 COVID-19 VACCINE ( - 2023-2 5 season) 2023 INFLUENZA VACCINE (#1) 2023 DEPRESSION SCREENING 02/09/2024 ZOSTER VACCINE (1 of 2) 2036 HIB VACCINE Aged Out No longer eligi ble based on patient's age to complete this topic HPV VACCINE Aged Out No longer eligi ble based on patient's age to complete this topic MENINGOCOCCAL (Group B) VACCINE Aged Out No longer eligible based on patient's age to complete this topic MENINGOCOCCAL VACCINE Aged Out No shelley luigi eligible based on patient's age to complete this topic PNEUMOCOCCAL VACCINE Aged Out No long er eligible based on patient's age to complete this topic
[2024-03-24 23:34] VITALS: BP 144/89; PULSE 96; RESP 20; TEMP 37.2; O2SAT 95
[2024-03-25 00:24] LABS: Influenza A QL RT-PCR Positive (Negative); Influenza B QL RT-PCR Negative (Negative); RSV RNA, RT-PCR Negative (Negative); SARS-CoV-2 RNA PCR Negative (Negative)
[2024-03-25 00:51] VITALS: O2SAT 95
--- NOTE | 2024-03-25 00:53 | ED.URI ---
HPI - URI/Sore Throat General Chief Complaint: Upper Respiratory Infection Stated Complaint: sick for 3 months , congestion, cough Time Seen by Provider: 03/25/24 00:48 History of Present Illness HPI Narrative: Patient states he has been having various colds since January. Does have history of asthma has been using his nebulizers and inhalers Related Data Home Medications ?Medication ?Instructions ?Recorded ?Confirmed ?Last Taken ?Type albuterol 90 mcg/actuation aerosol mcg inhalation 02/01/20 Unknown History inhaler budesonide-formoterol HFA 160 inhalation 10/21/20 Unknown History mcg-4.5 mcg/actuation aerosol inhaler (Symbicort) Allergies Allergy/AdvReac Type Severity Reaction Status Date / Time Cephalosporins Allergy Mild Unknown Verified 03/24/24 23:29 erythromycin base Allergy Mild Unknown Verified 03/24/24 23:29 Penicillins Allergy Mild Unknown Verified 03/24/24 23:29 Sulfa (Sulfonamide Allergy Mild Unknown Verified 03/24/24 23:29 Antibiotics) prednisone AdvReac Mild Hives Verified 03/24/24 23:29 Review of Systems Review of Systems: All systems reviewed & are unremarkable except as noted in HPI and below PMFSH Past Medical History Medical History (Updated 03/25/24 @ 00:55 by Angelika Nicholas MD) Kidney stones Anxiety Depression Asthma Surgical History Surgical History (Updated 10/21/20 @ 08:08 by Jhon Duarte MD) Hx of tonsillectomy Social History Social History Smoking status: Never smoker Gender identity (if verbalized by the patient): Male Exam Narrative: EXAMINATION OF ORGAN SYSTEMS/BODY AREAS: Constitutional: Vital signs per nursing GENERAL:[No acute distress, non-toxic appearing.] HEAD: Normal with no signs of head trauma. EYES: EOMI, conjunctiva normal ENT: Hearing grossly intact LUNGS: Nonlabored breathing. Slight end expiratory wheezing but good air move HEART: [Regular rate and rhythm] ABD: [Soft], [nontender to palpation] EXT: Normal range of motion SKIN: [No rashes or lesions.] NEURO: [Alert and oriented x 3. No gross focal sensory or strength deficits.] PSYCH: Normal affect Course Vital Signs Vital signs: Vital Signs Temperature 99.0 F 03/24/24 23:34 Pulse Rate 96 03/24/24 23:34 Respiratory Rate 20 03/24/24 23:34 Blood Pressure 144/89 H 03/24/24 23:34 Pulse Oximetry 95 03/24/24 23:34 Temperature 99.0 F 03/24/24 23:34 Pulse Rate 96 03/24/24 23:34 Respiratory Rate 20 03/24/24 23:34 Blood Pressure 144/89 H 03/24/24 23:34 Pulse Oximetry 95 03/25/24 00:51 Oxygen Delivery Room Air 03/25/24 00:51 MDM - URI/Sore Throat MDM Narrative Medical decision making narrative: ED COURSE AND MEDICAL DECISION MAKING: This 39 year old patient presents with symptoms most suggestive of viral upper respiratory tract infection. Lungs with some slight wheeze bilaterally without any respiratory distress or accessory muscle use. He did test positive for the flu. He will be Discharged home in stable condition with expectant management, I will put him on prednisone, refill his albuterol, and start him on Tamiflu given his risk factors. Return precautions were provided. Patient agreeable to this plan // Prednisone listed as allergy and gives hives however patient states he has taken in the past without issues Lab Data Labs: Lab Results 03/24/24 Range/Units 23:43 Influenza A (RT-PCR) Positive A (Negative) Influenza B (RT-PCR) Negative (Negative) RSV (RT-PCR) Negative (Negative) SARS-CoV-2 RNA (RT-PCR) Negative (Negative) Discharge Plan Discharge Clinical Impression: Influenza, Bronchitis Patient Disposition: Home, Self-Care Condition: Stable Instructions: Influenza (ED), Acute Bronchitis (ED) Additional Instructions: Please follow up with your doctor; you can always return for any further issues. Patient Language: Sri [place]ankan Prescriptions: New albuterol sulfate 90 mcg/actuation HFA aerosol inhaler 2 puff inhalation QID PRN (Reason: shortness of breath or wheezing) Qty: 8.5 0RF oseltamivir [Tamiflu] 75 mg capsule 75 mg PO Q12H 5 Days Qty: 10 0RF prednisone 20 mg tablet 40 mg PO DAILY 4 Days Qty: 8 0RF ipratropium-albuterol 0.5 mg-3 mg(2.5 mg base)/3 mL solution for nebulization 3 ml inhalation Q6H PRN (Reason: shortness of breath or wheezing) Qty: 90 0RF No Action acetaminophen 500 mg capsule 500 mg PO Q6H PRN (Reason: fever or pain) Qty: 30 0RF albuterol sulfate 90 mcg/actuation aero powdr breath act w/sensor 1 inhalation INHALATION Q4-6H PRN (Reason: shortness of breath or wheezing) 30 Days Qty: 1 0RF prednisone 20 mg tablet 60 mg PO DAILY 5 Days Qty: 15 0RF budesonide-formoterol [Symbicort] 160-4.5 mcg/actuation HFA aerosol inhaler INHALATION prednisone 50 mg tablet 50 mg PO DAILY Qty: 6 0RF albuterol sulfate 90 mcg/actuation HFA aerosol inhaler 4 puff INHALATION QID PRN (Reason: shortness of breath or wheezing) Qty: 8 0RF albuterol 90 mcg/actuation Aerosol INHALATION albuterol sulfate 2.5 mg/0.5 mL solution for nebulization 5 mg inhalation Q6H PRN (Reason: shortness of breath or wheezing) Qty: 30 0RF prednisone 50 mg tablet 50 mg PO DAILY Qty: 7 0RF fluticasone propionate [Flonase Allergy Relief] 50 mcg/actuation spray,suspension 1 spray intranasal Q12H Qty: 9.9 0RF Rx Instructions: administer into each nostril albuterol sulfate 90 mcg/actuation HFA aerosol inhaler 2 puff inhalation QID PRN (Reason: shortness of breath or wheezing) Qty: 6.7 0RF Follow-up/Referrals: Ebonie Huerta APRN [Primary Care Provider] -
--- OUTSIDE RECORDS SUMMARY | 2024-03-25 00:59 | XMS_ITS | Referral Summary ---
Author Organization [facility] [employer] Address [address] [place] [address] Care Team Providers Care Stage Set Designer Name Role Phone Unavailable Primary Care Provider Unavailabl e Source Comments [facility] [employer],non-owned Affiliates and Associated Physician Practices is amultiple site organization consisting of ambulatory clinics and hospital sitesin [place], [place]. This disclosure is being madepursuant to the Care Everywhere program and may not contain all information available regarding this patient. Last updated 17.[facility] [employer] Allergies Active Allergy Reactions Criticality Noted Date Comments Cephalosporins Urticaria Medium 06/20/2018 Erythromycin Urticaria Medium 06/20/2018 Penicillins Urticaria Medium 06/20/2018 Sulfa Drugs Urticaria Medium 06/20/2018 Medications * Be aware that medications may not be up to date on this document. Alwaysverify current medications with the patient. Medication Sig Dispensed Refills Start Date End Date Status Albuterol Sulfate (PROAIR HFA IN) Active albuterol HFA (PROVENTIL;VENTOLIN;NV OAIR) 108 (90 Base) MCG/ACT inhalerIndications:Ast hma, [...]
--- OUTSIDE RECORDS SUMMARY | 2024-03-25 00:59 | XMS_ITS | Patient Health Summary ---
Author Organization [facility] Address [address] [place] [address] Care Team Providers Care Entrepreneur Name Role Phone Unavailable Primary Care Provider Unavailabl e Note from [facility],non-owned Affiliates and Associated Physician Practices is amultiple site organization consisting of ambulatory clinics and hospital sitesin [place], [place], [place] and [place]. This disclosure is being madepursuant to the Care Everywhere program and may not contain all information available regarding this patient. Last updated 17.[facility] Allergies * Cephalosporins(Urticaria) -Medium Criticality * Erythromycin(Urticaria) [...] Unknown 06/20/2018 6:26 PM CDT Eren Muir SENIOR SOFTWARE TEST ENGINEER-[facility] - [place] RE ORDERABLES
--- OUTSIDE RECORDS SUMMARY | 2024-03-25 00:59 | XMS_ITS | Clinical Summary ---
Author Organization [facility] [employer] Address [address] [address] Care Team Providers Care In Home Baby Sitter Name Role Phone Unavailable Primary Care Provider Unavailabl e Source Comments [facility] [employer],non-owned Affiliates and Associated Physician Practices is amultiple site organization consisting of ambulatory clinics and hospital sitesin [place], [place], [place] and [place]. This disclosure is being madepursuant to the Care Everywhere program and may not contain all information available regarding this patient. Last updated 17.[facility] [employer] Allergies Active Allergy Reactions Criticality Noted Date Comments Cephalosporins Urticaria Medium 06/20/2018 Erythromycin Urticaria Medium 06/20/2018 Penicillins Urticaria Medium 06/20/2018 Sulfa Drugs Urticaria Medium 06/20/2018 Medications * Be aware that medications may not be up to date on this document. Alwaysverify current medications with the patient. Medication Sig Dispensed Refills Start Date End Date Status Albuterol Sulfate (PROAIR HFA IN) Active albuterol HFA (PROVENTIL;VENTOLIN;RI OAIR) 108 (90 Base) MCG/ACT inhalerIndications:Ast hma, [...]
== END 2024-03-25 01:02 | disposition home or self-care (01) ==
LOC: ANHED 03-25 00:57
PROVIDERS: Emergency Provider Emergency Medicine; PCP Nurse Practitioner Family
DX: J11.1 Influenza due to unidentified influenza virus with other respiratory manifestations (principal); J45.909 Unspecified asthma, uncomplicated; Z87.442 Personal history of urinary calculi
CPT/HCPCS: 71045; 87637; 99283